=== PATIENT | male | born 1980 | race Hispanic/Latino ===

== ENCOUNTER 2018-04-01 01:08 | Emergency (ER) | payer BC, SELFPAY ==
--- NOTE | 2018-04-01 02:57 | EDPHYS ---
Physician Documentation [facility] Name: Chris Nicole Age: 37 yrs Sex: Male : 1980 Arrival Date: 04/01/2018 Time: 01:13 Bed 14 Private MD: ED Physician Haider Tillman HPI: 04/01 02:53 This 37 yrs old Male presents to ER via Ambulatory with complaints of nh Congestion, Sore Throat. 02:53 Onset: The symptoms/episode began/occurred 1 day(s) ago. Associated signs and symptoms: nh Pertinent positives: congestion, fever, sore throat. Modifying factors: The patient symptoms are alleviated by nothing, the patient symptoms are aggravated by nothing. The patient has not experienced similar symptoms in the past. The patient has not recently seen a physician. Historical: - Allergies: 01:25 No Known Allergies; cc3 - Home Meds: 01:25 None [Active]; cc3 - PMHx: 01:25 None; cc3 - PSHx: 01:25 None; cc3 - Immunization history:: Adult Immunizations not up to date. - Social history:: Smoking status: Patient/guardian denies using tobacco, never smoked, Patient uses chewy tobacco. - Ebola Screening: : No symptoms or risks identified at this time. ROS: 02:53 Eyes: Negative for injury, pain, redness, and discharge, Neck: Negative for injury, nh pain, and swelling, Cardiovascular: Negative for chest pain, palpitations, and edema, Abdomen/GI: Negative for abdominal pain, nausea, vomiting, diarrhea, and constipation, Back: Negative for injury and pain, : Negative for injury, bleeding, discharge, and swelling, MS/Extremity: Negative for injury and deformity, Skin: Negative for injury, rash, and discoloration, Neuro: Negative for headache, weakness, numbness, tingling, and seizure, Psych: Negative for depression, anxiety, suicide ideation, homicidal ideation, and hallucinations, Allergy/Immunology: Negative for hives, rash, and allergies, Endocrine: Negative for neck swelling, polydipsia, polyuria, polyphagia, and marked weight changes, Hematologic/Lymphatic: Negative for swollen nodes, abnormal bleeding, and unusual bruising. 02:53 Constitutional: Positive for fever. 02:53 ENT: Positive for sinus congestion, sore throat. 02:53 Respiratory: Positive for cough. Exam: 02:53 Constitutional: This is a well developed, well nourished patient who is awake, alert, nh and in no acute distress. Head/Face: Normocephalic, atraumatic. Eyes: Pupils equal round and reactive to light, extra-ocular motions intact. Lids and lashes normal. Conjunctiva and sclera are non-icteric and not injected. Cornea within normal limits. Periorbital areas with no swelling, redness, or edema. ENT: Nares patent. No nasal discharge, no septal abnormalities noted. Tympanic membranes are normal and external auditory canals are clear. Oropharynx with no redness, swelling, or masses, exudates, or evidence of obstruction, uvula midline. Mucous membranes moist. Neck: Trachea midline, no thyromegaly or masses palpated, and no cervical lymphadenopathy. Supple, full range of motion without nuchal rigidity, or vertebral point tenderness. No Meningismus. Chest/axilla: Normal chest wall appearance and motion. Nontender with no deformity. No lesions are appreciated. Cardiovascular: Regular rate and rhythm with a normal S1 and S2. No gallops, murmurs, or rubs. Normal PMI, no JVD. No pulse deficits. Respiratory: Lungs have equal breath sounds bilaterally, clear to auscultation and percussion. No rales, rhonchi or wheezes noted. No increased work of breathing, no retractions or nasal flaring. Abdomen/GI: Soft, non-tender, with normal bowel sounds. No distension or tympany. No guarding or rebound. No evidence of tenderness throughout. Back: No spinal tenderness. No costovertebral tenderness. Full range of motion. Skin: Warm, dry with normal turgor. Normal color with no rashes, no lesions, and no evidence of cellulitis. MS/ Extremity: Pulses equal, no cyanosis. Neurovascular intact. Full, normal range of motion. Neuro: Awake and alert, GCS 15, oriented to person, place, time, and situation. Cranial nerves II-XII grossly intact. Motor strength 5/5 in all extremities. Sensory grossly intact. Cerebellar exam normal. Normal gait. Psych: Awake, alert, with orientation to person, place and time. Behavior, mood, and affect are within normal limits. Vital Signs: 01:25 BP 136 / 92; Pulse 91; Resp 18; Temp 97.7(O); Pulse Ox 95% on R/A; Weight 124.74 kg cc3 (R); Height 6 ft. 0 in. (182.88 cm) (R); 02:50 BP 133 / 87; Pulse 90; Resp 18 S; Pulse Ox 96% on R/A; cc3 01:25 Body Mass Index 37.30 (124.74 kg, 182.88 cm) cc3 MDM: 01:19 Patient medically screened. ne 02:53 Data reviewed: vital signs. ne 02:55 Counseling: I had a detailed discussion with the patient and/or guardian regarding: the ne historical points, exam findings, and any diagnostic results supporting the discharge/admit diagnosis, lab results, the need for outpatient follow up, to return to the emergency department if symptoms worsen or persist or if there are any questions or concerns that arise at home. 04/01 01:36 Order name: Flu ne Administered Medications: No medications were administered Disposition: 04/01/18 02:56 Discharged to Home. Impression: Acute upper respiratory infection, unspecified. - Condition is Stable. - Discharge Instructions: Upper Respiratory Infection, Adult. - Prescriptions for Zithromax Z- Benji 250 mg Oral Tablet - take 1 tablet by ORAL route as directed for 5 days Day 1 - take two (2) tablets one time. Day 2, 3, 4 , 5 take one (1) tablet once daily.; 6 tablet. - Medication Reconciliation Form, Thank You Letter, Antibiotic Education, Prescription Opioid Use, Work release form form. - Follow up: Private Physician; When: 2 - 3 days; Reason: Recheck today's complaints. - Problem is new. - Symptoms are unchanged. Addendum: 04/04/2018 21:51 Co-signature as Attending Physician, Haider Tillman MD Available for consultation at p s1 all times. . Signatures: Dispatcher [employer] EDMS Batsheva Restrepo FNP [employer] Haider Coley MD MD [facility] Rhina Reyna cc3 Corrections: (The following items were deleted from the chart) 04/01 03:14 02:56 04/01/2018 02:56 Discharged to Home. Impression: Acute upper respiratory cc3 infection, unspecified. Condition is Stable. Forms are Medication Reconciliation Form, Thank You Letter, Antibiotic Education, Prescription Opioid Use. Follow up: Private Physician; When: 2 - 3 days; Reason: Recheck today's complaints. Problem is new. Symptoms are unchanged. nh
--- NOTE | 2018-04-01 02:57 | ER ---
Nurse's Notes [facility] Name: Chris Nicole Age: 37 yrs Sex: Male : 1980 Arrival Date: 04/01/2018 Time: 01:13 Bed 14 Private MD: Diagnosis: Acute upper respiratory infection, unspecified Presentation: 04/01 01:25 Presenting complaint: Patient states: sore throat, congestion and generalized body pain cc3 since yesterday. Transition of care: patient was not received from another setting of care. Resp Distress? No respiratory distress is noted at this time. Onset of symptoms was March 31, 2018. Risk Assessment: Do you want to hurt yourself or someone else? Patient reports no desire to harm self or others. Initial Sepsis Screen: Does the patient meet any 2 criteria? No. Patient's initial sepsis screen is negative. Does the patient have a suspected source of infection? No. Patient's initial sepsis screen is negative. Care prior to arrival: None. 01:25 Method Of Arrival: Ambulatory cc3 01:25 Acuity: WILLY 4 cc3 Triage Assessment: 01:25 General: Appears in no apparent distress. comfortable, Behavior is calm, cooperative, cc3 appropriate for age. Pain: Complains of pain in generalized acute body pain. EENT: Reports nasal congestion since yesterday. Neuro: Level of Consciousness is awake, alert, obeys commands, Oriented to person, place, time, situation, Appropriate for age. Cardiovascular: Denies chest pain. Respiratory: Airway is patent Respiratory effort is even, unlabored, Respiratory pattern is regular, symmetrical, Breath sounds are clear bilaterally. GI: Abdomen is round obese. : No signs and/or symptoms were reported regarding the genitourinary system. Derm: No signs and/or symptoms reported regarding the dermatologic system. Musculoskeletal: Circulation, motion, and sensation intact. Range of motion: intact in all extremities. Historical: - Allergies: :25 No Known Allergies; cc3 - Home Meds: : None [Active]; cc3 - PMHx: :25 None; cc3 - PSHx: :25 None; cc3 - Immunization history:: Adult Immunizations not up to date. - Social history:: Smoking status: Patient/guardian denies using tobacco, never smoked, Patient uses chewy tobacco. - Ebola Screening: : No symptoms or risks identified at this time. Screenin:31 Abuse screen: Denies threats or abuse. Denies injuries from another. Nutritional cc3 screening: No deficits noted. Tuberculosis screening: No symptoms or risk factors identified. Fall Risk Ambulatory Aid- None/Bed Rest/Nurse Assist (0 pts). Gait- Normal/Bed Rest/Wheelchair (0 pts) Mental Status- Oriented to own ability (0 pts). Assessment: 01:25 General: see triage assessment. cc3 02:20 Reassessment: Patient appears in no apparent distress at this time. Patient and/or cc3 family updated on plan of care and expected duration. Pain level reassessed. Patient is alert, oriented x 3, equal unlabored respirations, skin warm/dry/pink. 03:10 Reassessment: Patient appears in no apparent distress at this time. Patient and/or cc3 family updated on plan of care and expected duration. Pain level reassessed. Patient is alert, oriented x 3, equal unlabored respirations, skin warm/dry/pink. SYNOPTIC METEOROLOGIST Kaye discharged the patient home with prescription given. No IV cannula in situ. Patient left ER vitally stable and ambulatory. Vital Signs: 01:25 BP 136 / 92; Pulse 91; Resp 18; Temp 97.7(O); Pulse Ox 95% on R/A; Weight 124.74 kg cc3 (R); Height 6 ft. 0 in. (182.88 cm) (R); 02:50 BP 133 / 87; Pulse 90; Resp 18 S; Pulse Ox 96% on R/A; cc3 01:25 Body Mass Index 37.30 (124.74 kg, 182.88 cm) cc3 ED Course: 01:13 Patient arrived in ED. ds1 01:19 Batsheva Restrepo FNP is PHCP. nh 01:19 Haider Tillman MD is Attending Physician. nh 01:31 Rhina Reyna is Primary Nurse. cc3 01:31 Arm band placed on left wrist. cc3 01:31 Patient has correct armband on for positive identification. Bed in low position. Call cc3 light in reach. Side rails up X 1. Pulse ox on. NIBP on. 01:32 Triage completed. cc3 03:10 No provider procedures requiring assistance completed. Patient did not have IV access cc3 during this emergency room visit. Administered Medications: No medications were administered Outcome: 02:56 Discharge ordered by . wy 03:10 Discharged to home ambulatory. cc3 03:10 Condition: stable 03:10 Discharge instructions given to patient, Instructed on discharge instructions, follow up and referral plans. medication usage, Demonstrated understanding of instructions, follow-up care, medications, Prescriptions given X 1. 03:14 Patient left the ED. cc3 Signatures: Batsheva Restrepo, BUNDLE TIER BUNDLE TIER Sasha Pepper dsDillan Staples Charlene cc3 Corrections: (The following items were deleted from the chart) 01:39 01:25 Musculoskeletal: Circulation, motion, and sensation intact. Range of motion: cc3 cc3 02:24 01:25 BP 136 / 92; Pulse 91bpm; Resp 18bpm; Pulse Ox 95% RA; Temp 97.7F Oral; oe cc3
== END 2018-04-01 03:14 | disposition home or self-care (01) ==
LOC: ER 01:08
DX: J06.9 Acute upper respiratory infection, unspecified (principal)
CPT/HCPCS: 87804; 99283